=== PATIENT | male | born 1950 | race Caucasian/White ===

== ENCOUNTER 2021-05-17 03:00 | Emergency (ER) | payer MEDICARE, OTHER ==
[~2021-05-17 03:00] MED LIST: carBAMazepine 200 MG Tab PO SCH
--- NOTE | 2021-05-17 03:37 | EDM.PDOC ---
ED HPI GENERAL MEDICAL PROBLEM - General Chief Complaint: Neurological Problem Stated Complaint: MEDICAL [facility] Time Seen by Provider: 05/17/21 03:27 Source of Information: Reports: Patient, RN Notes Reviewed History Limitations: Reports: No Limitations - History of Present Illness INITIAL COMMENTS - FREE TEXT/NARRATIVE: 70-year-old gentleman presents emergency department day following a seizure, he has a known seizure disorder most of his life usually controlled some with the Tegretol has been 3 and half years since his last seizure however he did have a medication change his lithium was reduced about 1 month ago. At this time he feels he is back to his normal self has no functional complaints - Related Data Allergies Allergy/AdvReac Type Severity Reaction Status Date / Time No Known Allergies Allergy Verified 05/17/21 03:07 Home Meds: Home Meds Ascorbate Calcium [Vitamin C] 1 tab PO DAILY 05/17/21 [History] [place] Carbonate 150 mg PO BEDTIME 05/17/21 [History] Memantine [Namenda] 10 mg PO BID 05/17/21 [History] Nortriptyline HCl [Pamelor] 1 cap PO BEDTIME 05/17/21 [History] Tamsulosin HCl [Flomax] 1 cap PO BEDTIME 05/17/21 [History] Topiramate [Topamax] 100 mg PO BID 05/17/21 [History] amLODIPine [Norvasc] 5 mg PO BID 05/17/21 [History] carBAMazepine [Carbamazepine ER] 200 mg PO DAILY #10 cpmp.12hr 05/17/21 [Rx] carBAMazepine [TEGretol XR] 200 mg PO ASDIRECTED 05/17/21 [History] Past Medical History HEENT History: Reports: Impaired Vision Cardiovascular History: Reports: Hypertension Genitourinary History: Reports: BPH Neurological History: Reports: Seizure - Infectious Disease History Infectious Disease History: Reports: Chicken Pox, Measles, Mumps - Past Surgical History HEENT Surgical History: Reports: Oral Surgery Social & Family History - Tobacco Use Tobacco Use Status *Q: Former Tobacco User Used Tobacco, but Quit: Yes Month/Year Tobacco Last Used: 06/1966 - Caffeine Use Caffeine Use: Reports: Coffee - Recreational Drug Use Recreational Drug Use: No ED ROS GENERAL - Review of Systems Review Of Systems: See Below Respiratory: Reports: No Symptoms Cardiovascular: Reports: No Symptoms GI/Abdominal: Reports: No Symptoms Neurological: Reports: Seizure ED EXAM, NEURO - Physical Exam Exam: See Below Exam Limited By: No Limitations General Appearance: Alert, WD/WN, No Apparent Distress Respiratory/Chest: No Respiratory Distress, Lungs Clear, Normal Breath Sounds, No Accessory Muscle Use, Chest Non-Tender Cardiovascular: Regular Rate, Rhythm, No Murmur GI/Abdominal: Soft, Non-Tender Course - Vital Signs Last Recorded V/S: Last Vital Signs Temp 98.0 F 05/17/21 03:03 Pulse 89 05/17/21 03:03 Resp 16 05/17/21 03:03 BP 173/83 H 05/17/21 03:03 Pulse Ox 100 05/17/21 03:03 - Orders/Labs/Meds Orders: Active Orders 24 hr Category Date Time Status CARBAMAZEPINE(TEGRETOL),S Urgent Lab 05/17/21 03:44 Received Labs: Laboratory Tests 05/17/21 05/17/21 05/17/21 Range/Units 03:44 03:44 03:44 WBC 5.2 (4.5-11.0) K/uL RBC 4.04 L (4.30-5.90) M/uL Hgb 12.4 (12.0-15.0) g/dL Hct 35.8 L (40.0-54.0) % MCV 89 (80-98) fL MCH 31 (27-31) pg MCHC 35 (32-36) % Plt Count 224 (150-400) K/uL Neut % (Auto) 72.2 H (36-66) % Lymph % (Auto) 12.5 L (24-44) % Hinds % (Auto) 13.9 H (2-6) % Eos % (Auto) 1.2 L (2-4) % Baso % (Auto) 0.2 (0-1) % Sodium 141 (140-148) mmol/L Potassium 3.6 (3.6-5.2) mmol/L Chloride 108 (100-108) mmol/L Carbon Dioxide 23 (21-32) mmol/L Anion Gap 10.4 (5.0-14.0) mmol/L BUN 22 H (7-18) mg/dL Creatinine 1.4 H (0.8-1.3) mg/dL Est Cr Clr Drug Dosing 45.37 mL/min Estimated GFR (MDRD) 50 L (>60) Glucose 126 H (74-106) mg/dL Lactic Acid 0.7 (0.4-2.0) mmol/L Calcium 8.9 (8.5-10.1) mg/dL Departure - Departure Time of Disposition: 05:04 Disposition: Home, Self-Care 01 Condition: Fair Clinical Impression: Breakthrough seizure - Discharge Information Prescriptions: carBAMazepine [Carbamazepine ER] 200 mg PO DAILY #10 cpmp.12hr Instructions: Seizure, Adult, [id number] Referrals: PCP,None [Primary Care Provider] - Forms: ED Department Discharge Additional Instructions: Medications have been faxed to [facility] pharmacy, recommend take 2 tablets of Tegretol in the morning this will be 400 mg and then 2 tablets in the evening, your Tegretol level will be back on Wednesday or Wednesday of next week we will notify you with the results keep your follow-up appointment with your neurologist this month Sepsis Event Note (ED) - Evaluation Sepsis Screening Result: No Definite Risk - Focused Exam Vital Signs: Vital Signs Temp Pulse Resp BP Pulse Ox 05/17/21 03:03 98.0 F 89 16 173/83 H 100 - My Orders Last 24 Hours: My Active Orders 05/17/21 03:44 CARBAMAZEPINE(TEGRETOL),S Urgent - Assessment/Plan Last 24 Hours: My Active Orders 05/17/21 03:44 CARBAMAZEPINE(TEGRETOL),S Urgent Plan: Assessment Acuity = acute Site and laterality = breakthrough seizure Etiology = probable relationship between carbamazepine and lithium with recent lithium reduction 1 month ago Manifestations = none Location of injury = Home Lab values = CBC BMP unremarkable Plan Plan is to increase the carbamazepine a small amount right now he takes 100 in the morning of 200 mg tablets and 2 tablets in the evening will increase that to 2 tablets a.m. and p.m. until the Tegretol level gets back he has a follow-up ap pointment with his neurologist on the of this month This note was dictated using [email or web address] voice recognition software please call with any questions on syntax or grammar.
[2021-05-17] MEDS ORDERED: carBAMazepine 200 MG Tab ONE (22:03)
== END 2021-05-17 05:16 | disposition home or self-care (01) ==
LOC: JP.ED 03:00
DX: R56.9 Unspecified convulsions (principal); I10 Essential (primary) hypertension; N40.0 Benign prostatic hyperplasia without lower urinary tract symptoms; Z77.22 Contact with and (suspected) exposure to environmental tobacco smoke (acute) (chronic); Z87.891 Personal history of nicotine dependence
CPT/HCPCS: 36415; 80048; 80156; 83605; 85025; 99284; A9270